=== PATIENT | male | born 1960 | race Hispanic/Latino ===

== ENCOUNTER 2021-02-26 20:28 | Inpatient (IN) | payer BC, OTHER ==
[~2021-02-26] VITALS: Ht 175.3 cm; Wt 93.0 kg
[~2021-02-26 20:28] MED LIST: AVODART0.5 MG PO; TAMSULOSIN HCL0.4 MG PO
[2021-02-26] MEDS ORDERED: Morphine 4mg Syringe 4 MG/ML INJ IV STA (20:47)
[2021-02-26] MEDS ORDERED: SODIUM CHLORIDE 0.9% 1000ML 1,000 ML IV STA (20:47)
[2021-02-26] MEDS ORDERED: ONDANSETRON HCL INJ 2MG/ML 2ML 2 MG/ML VIAL IV STA (20:47)
[2021-02-26 21:11] LABS: BASOPHILS % 0.4 % (0.0-1.0); EOSINOPHILS # (AUTO) 0.2 (0.0-0.4); HEMATOCRIT 47.5 % (38.2-49.6); HEMOGLOBIN 15.3 g/dL (14.0-18.0); LYMPHOCYTES # (AUTO) 1.8 (1.0-3.2); LYMPHOCYTES % 24.7 % (18.0-39.1); MEAN CORPUSCULAR HEMOGLOBIN 29.4 pg (28-32); MEAN CORPUSCULAR HGB CONC 32.2 g/dL (31-35); MEAN CORPUSCULAR VOLUME 91.3 fL (81-99); MONOCYTES # (AUTO) 0.7 (0.2-0.8); MONOCYTES % 9.4 % (4.4-11.3); NEUTROPHILS # (AUTO) 4.6 (2.1-6.9); NEUTROPHILS % 63.1 % (38.7-80.0); PLATELET COUNT 239 x10e3/uL (140-360); RED CELL DISTRIBUTION WIDTH 13.3 % (11.7-14.4)
[2021-02-26 21:24] LABS: ALANINE AMINOTRANSFERASE 16 IU/L (0-55); ALBUMIN 3.7 g/dL (3.5-5.0); ALBUMIN/GLOBULIN RATIO 1.1 (0.8-2.0); ALKALINE PHOSPHATASE 74 IU/L (40-150); ANION GAP 15.6 mmol/L (8-16); BLOOD UREA NITROGEN 9 mg/dL (7-26); BUN/CREATININE RATIO 10 (6-25); CALCIUM 8.6 mg/dL (8.4-10.2); CARBON DIOXIDE 28 mmol/L (22-29); CHLORIDE 101 mmol/L (98-107); CREATINE KINASE 66 IU/L (30-200); CREATININE, SERUM 0.87 mg/dL (0.72-1.25); EST GLOMERULAR FILTRATION RATE 89 ML/MIN (60-); GLUCOSE 177 mg/dL (74-118); POTASSIUM 3.6 mmol/L (3.5-5.1); SODIUM 141 mmol/L (136-145)
[2021-02-26] MEDS ORDERED: SODIUM CHLORIDE 0.9% 50ML 50 ML ONE (21:57)
[2021-02-26] MEDS ORDERED: IOPAMIDOL 370 MG/ML 200 ML INFUS..BTL INJ ONE (21:57)
[2021-02-26 22:14] LABS: CLARITY,URINE SL CLOUDY (CLEAR); COLOR,URINE YELLOW (YELLOW); KETONES,URINE NEGATIVE (NEGATIVE); LEUKOCYTE ESTERASE ,URINE NEGATIVE (NEGATIVE); NITRITE,URINE NEGATIVE (NEGATIVE); PROTEIN,URINE DIPSTICK NEGATIVE (NEGATIVE); URINE UROBILINOGEN 0.2 mg/dL (0.2 - 1)
[2021-02-26 22:31] LABS: BACTERIA,URINE MODERATE /HPF; EPITHELIAL CELLS,URINE MODERATE /LPF; WBC,URINE (MAN) 0-5 /HPF (0-5)
[2021-02-26] MEDS ORDERED: SODIUM CHLORIDE 0.9% 1000ML 1,000 ML IV SCH (23:30)
[2021-02-26] MEDS ORDERED: Morphine 4mg Syringe 4 MG/ML INJ IV PRN (23:30)
[2021-02-26] MEDS ORDERED: ONDANSETRON HCL INJ 2MG/ML 2ML 2 MG/ML VIAL IV PRN (23:30)
[2021-02-27] VITALS (11 sets, daily range): BP systolic 121–150; BP diastolic 75–98
[2021-02-27] MEDS: PIPERACILLIN/TAZOBACTAM 3.375 GM in SODIUM CHLORIDE 0.9% 50ML 50 ML IV SCH ×2 (00:10→06:11)
[2021-02-27] MEDS ORDERED: KETOROLAC TROMETHAMINE 30 MG/ML VIAL IV STA (01:43)
[2021-02-27] MEDS ORDERED: KETOROLAC TROMETHAMINE 30 MG/ML VIAL ONE (01:55)
[2021-02-27 06:35] LABS: BASOPHILS % 0.1 % (0.0-1.0); EOSINOPHILS # (AUTO) 0.2 (0.0-0.4); EOSINOPHILS % 3.1 % (0.0-6.0); HEMATOCRIT 41.1 % (38.2-49.6); HEMOGLOBIN 13.7 g/dL (14.0-18.0); LYMPHOCYTES # (AUTO) 1.7 (1.0-3.2); LYMPHOCYTES % 25.4 % (18.0-39.1); MEAN CORPUSCULAR HEMOGLOBIN 29.7 pg (28-32); MEAN CORPUSCULAR HGB CONC 33.3 g/dL (31-35); MONOCYTES # (AUTO) 0.7 (0.2-0.8); MONOCYTES % 10.6 % (4.4-11.3); NEUTROPHILS # (AUTO) 4.1 (2.1-6.9); NEUTROPHILS % 60.4 % (38.7-80.0); PLATELET COUNT 205 x10e3/uL (140-360); RED BLOOD COUNT 4.62 x10e6/uL (4.3-5.7); RED CELL DISTRIBUTION WIDTH 13.3 % (11.7-14.4)
[2021-02-27 07:07] LABS: ALBUMIN 3.2 g/dL (3.5-5.0); ALBUMIN/GLOBULIN RATIO 1.2 (0.8-2.0); ANION GAP 12.5 mmol/L (8-16); CALCIUM 7.6 mg/dL (8.4-10.2); CREATININE, SERUM 0.77 mg/dL (0.72-1.25); POTASSIUM 3.5 mmol/L (3.5-5.1)
[2021-02-27 07:08] LABS: CREATINE KINASE 65 IU/L (30-200)
[2021-02-27 08:29] LABS: CREATINE KINASE MB < 1.00 ng/mL (0-4.3)
[2021-02-27] MEDS ORDERED: ONDANSETRON HCL INJ 2MG/ML 2ML 2 MG/ML VIAL IV PRN (08:30)
[2021-02-27] MEDS ORDERED: FAMOTIDINE 20 MG/2 ML VIAL IV SCH (09:00)
[2021-02-27] MEDS ORDERED: ASPIRIN81 MG PO (09:48)
[2021-02-27] MEDS ORDERED: NAMENDA10 MG PO (09:48)
[2021-02-27] MEDS ORDERED: B12 ACTIVE1000 MCG (09:48)
[2021-02-27] MEDS ORDERED: VENLAFAXINE H37.5 M2 PO (09:48)
[2021-02-27] MEDS ORDERED: ARICEPT10 MG PO (09:48)
[2021-02-27] MEDS ORDERED: MULTIVITAMIN1 EACH (09:48)
[2021-02-27] MEDS ORDERED: SIMVASTATIN20 MG PO (09:48)
[2021-02-27] MEDS: LACTATED RINGER'S 1,000 ML INJ SCH (10:03)
[2021-02-27 13:51] LABS: CREATINE KINASE 89 IU/L (30-200)
[2021-02-27] MEDS ORDERED: MAGNESIUM HYDROXIDE 30 ML UDC PO ONE (18:30)
[2021-02-27] MEDS ORDERED: Morphine 2mg Syringe 2 MG/ML SYR IV PRN (19:30)
[2021-02-27] MEDS: BISACODYL 10 MG SUPP PR SCH (20:29)
[2021-02-27] MEDS: SIMVASTATIN 20 MG TAB PO SCH (20:40)
[2021-02-27] MEDS: DONEPEZIL HCL 5 MG TAB PO SCH (20:40)
[2021-02-28] VITALS (7 sets, daily range): BP systolic 130–140; BP diastolic 85–97
[2021-02-28] MEDS: LACTATED RINGER'S 1,000 ML INJ SCH ×2 (08:10→16:49)
[2021-02-28] MEDS: BISACODYL 10 MG SUPP PR SCH (09:00)
[2021-02-28] MEDS: DUTASTERIDE 0.5 MG CAP PO SCH (09:00)
[2021-02-28] MEDS: ASPIRIN 81 MG CHEW TAB PO SCH (09:00)
[2021-02-28] MEDS: VENLAFAXINE HCL 37.5MG XR CAP PO SCH (09:00)
[2021-02-28] MEDS: MEMANTINE 10 MG TAB PO SCH (09:01)
[2021-02-28] MEDS: TAMSULOSIN HCL 0.4 MG CAP PO SCH (09:01)
[2021-02-28] MEDS ORDERED: ACETAMINOPHEN 325 MG TAB PO PRN (10:15)
[2021-02-28] MEDS: SIMVASTATIN 20 MG TAB PO SCH (21:28)
[2021-02-28] MEDS: DONEPEZIL HCL 5 MG TAB PO SCH (21:28)
[2021-03-01 00:22] VITALS: BP 143/82
[2021-03-01 04:00] VITALS: BP 133/96
[2021-03-01 07:16] VITALS: BP 137/91
[2021-03-01 07:35] VITALS: BP 137/91
[2021-03-01] MEDS: TAMSULOSIN HCL 0.4 MG CAP PO SCH (08:24)
[2021-03-01] MEDS: ASPIRIN 81 MG CHEW TAB PO SCH (08:24)
[2021-03-01] MEDS: MEMANTINE 10 MG TAB PO SCH (08:24)
[2021-03-01] MEDS: VENLAFAXINE HCL 37.5MG XR CAP PO SCH (08:24)
[2021-03-01] MEDS: DUTASTERIDE 0.5 MG CAP PO SCH (08:24)
[2021-03-01 11:03] VITALS: BP 131/80
[2021-03-01] MEDS ORDERED: ONDANSETRON HCL 4 MG ORAL DISINTEGRATING TAB PO PRN (13:15)
== END 2021-03-01 13:16 | disposition home or self-care (01) | DRG 390 ==
LOC: ER 20:33 → ERHOLD 23:47 → MED/SURG 02-27 01:38 → OBSVTOIN 02-28 08:41
PROVIDERS: ADMIT Internal Medicine; ATTEND Internal Medicine
DX: K56.600 Partial intestinal obstruction, unspecified as to cause (principal); F03.90 Unspecified dementia, unspecified severity, without behavioral disturbance, psychotic disturbance, mood disturbance, and anxiety; Z20.822 Contact with and (suspected) exposure to COVID-19; N40.0 Benign prostatic hyperplasia without lower urinary tract symptoms
CPT/HCPCS: 36415; 74018; 74177; 80053; 81001; 82550; 82553; 84484; 85025; 85730; 93005; 99284; G0378; J1885; J2270; J2405; J2543; J7030; J7121; Q9967; U0002

== ENCOUNTER 2021-03-12 19:35 | Inpatient (IN) | payer OTHER ==
[~2021-03-12] VITALS: Ht 177.8 cm; Wt 127.0 kg
[~2021-03-12 19:35] MED LIST changes: +ARICEPT10 MG PO; +ASPIRIN81 MG PO; +B12 ACTIVE1000 MCG; +MULTIVITAMIN1 EACH; +NAMENDA10 MG PO; +SIMVASTATIN20 MG PO; +VENLAFAXINE H37.5 M2 PO
[2021-03-12] MEDS ORDERED: DIATRIZOATE MEGL/DIATRIZOA SOD 30 ML BTL PO ONE (20:14)
[2021-03-12 20:32] LABS: BASOPHILS % 0.3 % (0.0-1.0); EOSINOPHILS # (AUTO) 0.1 (0.0-0.4); EOSINOPHILS % 1.1 % (0.0-6.0); HEMATOCRIT 46.9 % (38.2-49.6); HEMOGLOBIN 15.1 g/dL (14.0-18.0); LYMPHOCYTES # (AUTO) 1.7 (1.0-3.2); MEAN CORPUSCULAR HEMOGLOBIN 29.8 pg (28-32); MEAN CORPUSCULAR HGB CONC 32.2 g/dL (31-35); MEAN CORPUSCULAR VOLUME 92.5 fL (81-99); MONOCYTES # (AUTO) 0.6 (0.2-0.8); MONOCYTES % 6.9 % (4.4-11.3); NEUTROPHILS # (AUTO) 6.7 (2.1-6.9); NEUTROPHILS % 73.5 % (38.7-80.0); PLATELET COUNT 261 x10e3/uL (140-360); RED BLOOD COUNT 5.07 x10e6/uL (4.3-5.7); RED CELL DISTRIBUTION WIDTH 13.4 % (11.7-14.4)
[2021-03-12] MEDS ORDERED: ONDANSETRON HCL INJ 2MG/ML 2ML 2 MG/ML VIAL IV STA ×2 (20:40→20:56)
[2021-03-12] MEDS ORDERED: ONDANSETRON HCL INJ 2MG/ML 2ML 2 MG/ML VIAL ONE (20:54)
[2021-03-12 21:04] LABS: ALBUMIN 4.1 g/dL (3.5-5.0); ALBUMIN/GLOBULIN RATIO 1.2 (0.8-2.0); ANION GAP 14.9 mmol/L (8-16); CALCIUM 9.5 mg/dL (8.4-10.2); CREATININE, SERUM 1.08 mg/dL (0.72-1.25); POTASSIUM 3.9 mmol/L (3.5-5.1)
[2021-03-12 21:05] LABS: AMYLASE 69 U/L (25-125); LIPASE 20 U/L (8-78)
[2021-03-12] MEDS ORDERED: IOPAMIDOL 370 MG/ML 200 ML INFUS..BTL INJ ONE (21:18)
[2021-03-12] MEDS ORDERED: SODIUM CHLORIDE 0.9% 50ML 50 ML ONE (21:18)
[2021-03-12] MEDS ORDERED: ONDANSETRON HCL INJ 2MG/ML 2ML 2 MG/ML VIAL IV PRN (23:15)
[2021-03-13] VITALS (9 sets, daily range): BP systolic 121–132; BP diastolic 82–92
[2021-03-13] MEDS ORDERED: BENZOCAINE 20% SPR 60 ML CAN MT ONE (00:15)
[2021-03-13] MEDS ORDERED: BENZOCAINE 20% SPR 60 ML CAN ONE (00:19)
[2021-03-13] MEDS ORDERED: ACETAMINOPHEN 1000 MG/100 ML IV PRN (00:30)
[2021-03-13] MEDS ORDERED: ACETAMINOPHEN 1000 MG/100 ML 100 ML IV ONE (00:44)
[2021-03-13] MEDS: SODIUM CHLORIDE 0.9% 1000ML 1,000 ML IV SCH ×2 (00:49→07:27)
[2021-03-13] MEDS ORDERED: PIPERACILLIN/TAZOBACTAM 3.375 GM in SODIUM CHLORIDE 0.9% 50ML 50 ML IV SCH (06:00)
[2021-03-13 06:21] LABS: BASOPHILS % 0.2 % (0.0-1.0); EOSINOPHILS % 0.1 % (0.0-6.0); HEMATOCRIT 47.2 % (38.2-49.6); HEMOGLOBIN 15.3 g/dL (14.0-18.0); LYMPHOCYTES # (AUTO) 1.2 (1.0-3.2); LYMPHOCYTES % 9.1 % (18.0-39.1); MEAN CORPUSCULAR HEMOGLOBIN 29.2 pg (28-32); MEAN CORPUSCULAR HGB CONC 32.4 g/dL (31-35); MEAN CORPUSCULAR VOLUME 90.1 fL (81-99); MONOCYTES % 7.7 % (4.4-11.3); NEUTROPHILS # (AUTO) 11.1 (2.1-6.9); NEUTROPHILS % 82.6 % (38.7-80.0); PLATELET COUNT 224 x10e3/uL (140-360); RED BLOOD COUNT 5.24 x10e6/uL (4.3-5.7); RED CELL DISTRIBUTION WIDTH 13.2 % (11.7-14.4)
[2021-03-13 06:42] LABS: ALBUMIN 3.8 g/dL (3.5-5.0); ALBUMIN/GLOBULIN RATIO 1.1 (0.8-2.0); ALKALINE PHOSPHATASE 67 IU/L (40-150); ANION GAP 16.7 mmol/L (8-16); BLOOD UREA NITROGEN 10 mg/dL (7-26); BUN/CREATININE RATIO 10 (6-25); CALCIUM 9.9 mg/dL (8.4-10.2); CARBON DIOXIDE 26 mmol/L (22-29); CHLORIDE 105 mmol/L (98-107); CREATININE, SERUM 0.97 mg/dL (0.72-1.25); EST GLOMERULAR FILTRATION RATE 78 ML/MIN (60-); GLUCOSE 126 mg/dL (74-118); POTASSIUM 3.7 mmol/L (3.5-5.1); SODIUM 144 mmol/L (136-145)
[2021-03-13 06:43] LABS: ALANINE AMINOTRANSFERASE < 6 IU/L (0-55)
[2021-03-13] MEDS ORDERED: Morphine 2mg Syringe 2 MG/ML SYR IV PRN (10:00)
[2021-03-13] MEDS ORDERED: ONDANSETRON HCL INJ 2MG/ML 2ML 2 MG/ML VIAL IV PRN (10:00)
[2021-03-13] MEDS ORDERED: LACTATED RINGER'S 1,000 ML ONE (10:15)
[2021-03-13] MEDS: LACTATED RINGER'S 1,000 ML INJ SCH ×2 (10:19→20:00)
[2021-03-13] MEDS: FAMOTIDINE 20 MG/2 ML VIAL IV SCH (16:52)
[2021-03-13] MEDS: BISACODYL 10 MG SUPP PR SCH (21:41)
[2021-03-14] VITALS (8 sets, daily range): BP systolic 126–155; BP diastolic 77–97
[2021-03-14] MEDS: LACTATED RINGER'S 1,000 ML INJ SCH ×2 (01:32→18:34)
[2021-03-14 05:20] LABS: BASOPHILS % 0.3 % (0.0-1.0); EOSINOPHILS # (AUTO) 0.2 (0.0-0.4); EOSINOPHILS % 1.6 % (0.0-6.0); HEMATOCRIT 46.2 % (38.2-49.6); HEMOGLOBIN 14.6 g/dL (14.0-18.0); LYMPHOCYTES # (AUTO) 1.4 (1.0-3.2); LYMPHOCYTES % 14.6 % (18.0-39.1); MEAN CORPUSCULAR HEMOGLOBIN 29.5 pg (28-32); MEAN CORPUSCULAR HGB CONC 31.6 g/dL (31-35); MEAN CORPUSCULAR VOLUME 93.3 fL (81-99); MONOCYTES # (AUTO) 0.9 (0.2-0.8); MONOCYTES % 9.2 % (4.4-11.3); NEUTROPHILS # (AUTO) 7.3 (2.1-6.9); NEUTROPHILS % 73.9 % (38.7-80.0); PLATELET COUNT 230 x10e3/uL (140-360); RED BLOOD COUNT 4.95 x10e6/uL (4.3-5.7); RED CELL DISTRIBUTION WIDTH 13.5 % (11.7-14.4)
[2021-03-14 05:43] LABS: ANION GAP 14.6 mmol/L (8-16); CALCIUM 9.1 mg/dL (8.4-10.2); CREATININE, SERUM 0.83 mg/dL (0.72-1.25); MAGNESIUM 2.1 MG/DL (1.3-2.1); POTASSIUM 3.6 mmol/L (3.5-5.1)
[2021-03-14] MEDS: BISACODYL 10 MG SUPP PR SCH (12:36)
[2021-03-14] MEDS: FAMOTIDINE 20 MG/2 ML VIAL IV SCH ×2 (12:36→17:17)
[2021-03-14] MEDS ORDERED: MAGNESIUM HYDROXIDE 30 ML UDC PO ONE (18:00)
[2021-03-14] MEDS ORDERED: LORAZEPAM INJ 2 MG/ML VIAL IV ONE (22:15)
[2021-03-15] VITALS (8 sets, daily range): BP systolic 120–141; BP diastolic 65–95
[2021-03-15] MEDS ORDERED: ZIPRASIDONE 20 MG VIAL IM ONE ×2 (01:15→01:30)
[2021-03-15] MEDS: LACTATED RINGER'S 1,000 ML INJ SCH ×2 (01:47→12:00)
[2021-03-15] MEDS: FAMOTIDINE 20 MG/2 ML VIAL IV SCH ×2 (09:01→16:21)
[2021-03-15] MEDS: ENOXAPARIN SOD INJ 40 MG/0.4 ML SYR SC SCH (18:55)
[2021-03-16] VITALS (9 sets, daily range): BP systolic 118–152; BP diastolic 89–118
[2021-03-16] MEDS: LACTATED RINGER'S 1,000 ML INJ SCH (01:45)
[2021-03-16] MEDS: FAMOTIDINE 20 MG/2 ML VIAL IV SCH ×2 (09:05→17:19)
[2021-03-16] MEDS: ENOXAPARIN SOD INJ 40 MG/0.4 ML SYR SC SCH (17:19)
== END 2021-03-16 18:40 | disposition home or self-care (01) | DRG 389 ==
LOC: ER 20:01 → ERHOLD 03-13 00:03 → MED/SURG 03-13 01:14
PROVIDERS: ADMIT Internal Medicine; ATTEND Internal Medicine
DX: K56.600 Partial intestinal obstruction, unspecified as to cause (principal); Z68.41 Body mass index [BMI] 40.0-44.9, adult; F03.90 Unspecified dementia, unspecified severity, without behavioral disturbance, psychotic disturbance, mood disturbance, and anxiety; E66.01 Morbid (severe) obesity due to excess calories; Z20.822 Contact with and (suspected) exposure to COVID-19
CPT/HCPCS: 36415; 74019; 74022; 74177; 80048; 80053; 82150; 83690; 83735; 85025; 94799; 96361; 99284; J1650; J2060; J2405; J2543; J3486; J7030; J7121; Q9967; U0002